=== PATIENT | male | born 1950 | race Caucasian/White ===

== ENCOUNTER 2018-03-16 05:59 | Inpatient (IN) ==
--- NOTE | 2018-03-02 08:46 | PAT Medication Instructions ---
Medication Instructions Date of Service March 02, 2018 Home Medications garlic 150 mg PO DAILY lansoprazole [Prevacid] 40 mg PO QAM lisinopril-hydrochlorothiazide 1 tab PO QAM lovastatin 20 mg PO HS naproxen sodium [Aleve] 220 mg PO UD PRN omega 7-qpg-kxi-fish oil [[place]-3] 1 dose PO DAILY tamsulosin [Flomax] 1 dose PO QAM ASK your surgeon for instructions naproxen sodium [Aleve] 220 mg PO UD PRN STOP taking 2 weeks before surgery (or as soon as possible if surgery is within 2 weeks) garlic 150 mg PO DAILY omega 4-bcw-jnu-fish oil [[place]-3] 1 dose PO DAILY DO NOT take the morning of surgery lisinopril-hydrochlorothiazide 1 tab PO QAM Take morning of surgery With a small sip of water, OTHERWISE NOTHING TO EAT OR DRINK AFTER MIDNIGHT: lansoprazole [Prevacid] 40 mg PO QAM tamsulosin [Flomax] 1 dose PO QAM Take evening before surgery lovastatin 20 mg PO HS Other Notes If you have any questions please call us at [phone] or [phone] or [phone] or [phone]
--- NOTE | 2018-03-02 13:16 | Anesthesiology Consultation ---
Date of Service March 02, 2018 Assessment & Plan (1) Encounter for pre-operative examination: Chart Review Chart Review: Acceptable Risk for Surgery and Patient seen in Pre Admission Testing Consults Requested medical (Dr. Opal Zeng (saw her PA-C on 02/22)) Patient was seen by PCP's office for medical pre-op examination. Note states, "There is no medical contraindication for the proposed surgery and anesthesia." Teaching & Discussion Pre-Anesthesia Teaching/Discussion Notes: Instructed NPO after midnight before surgery, except medications with 15 cc of water. Medication instructions provided according to the PAT guidelines. History Surgery Operation Date: 03/16/18 09:35 Proposed Procedures p Right Total Knee Arthroplasty - Marek Avelar MD Height/Weight Height: 6 ft Weight: 126 kg Allergies Allergy/AdvReac Type Severity Reaction Status Date / Time DUST Allergy Unknown Sneezing Uncoded 02/16/18 12:03 Medications Home Medications Medication Instructions Recorded Confirmed Last Taken garlic 150 mg PO DAILY 02/16/18 02/16/18 Unknown lansoprazole [Prevacid] 40 mg PO QAM 02/16/18 02/16/18 Unknown lisinopril-hydrochlorothiazide 1 tab PO QAM 02/16/18 02/16/18 Unknown lovastatin 20 mg PO HS 02/16/18 02/16/18 Unknown naproxen sodium [Aleve] 220 mg PO UD PRN 02/16/18 02/16/18 Unknown omega 7-yxl-izj-fish oil [[place]-3] 1 dose PO DAILY 02/16/18 02/16/18 Unknown tamsulosin [Flomax] 1 dose PO QAM 02/16/18 02/16/18 Unknown Past Medical History Medical History Acid reflux Arthritis Elevated glucose level Enlarged prostate History of endoscopy WITH DILATATION - 6 YRS AGO/NONE SINCE History of kidney stones Hyperlipidemia Hypertension Obesity Past Family History Family History Grandmother (Maternal) Family history of breast cancer Past Surgical History Surgical History History of colonoscopy History of laparoscopic cholecystectomy History of total left knee replacement Past Anesthesia History No Hx of Anesthesia Complications and No Family Hx of Anesthesia Complications History of PONV No Motion Sickness Screening History of Motion Sickness: Yes Social History Smoking Status: Never smoker Do You Dip or Chew Tobacco: No Hx Alcohol Use: No Hx Substance Use: No substance use type: does not use Exercise / Class Metabolic Activity II 4-5 Yardwork/Stairs/Walk up hill (Cuts wood, takes care of cattle, takes care of farm. Able to climb FOS. Denies CP or SOB. ) Review of Systems Patient denies chest pain, shortness of breath, dyspnea on exertion, cough, wheezing, palpitations. +joint pain (fingers, knee) +acid reflux (mostly controlled by medications) Physical Exam Vital Signs BP: 132/81 P: 88 R: 18 T: 98.2 SPO2: 96% on RA ENMT Mouth: + chipped teeth Thyromental Distance: > or= 3.5 Finger Breadths (3.5) Mallampati Class: II Neck normal visual inspection, trachea midline and + thick neck; neck extension not limited Respiratory normal respiratory effort Auscultation: lungs clear to auscultation bilaterally Cardiovascular Rate/Rhythm: regular rate and regular rhythm Heart Sounds: no murmur Vessels: no carotid bruit Neurologic moves all extremities Psychiatric Orientation: alert and oriented x 3 Testing Electrocardiogram Date: 03/02/18 Findings: + NSR @ (78) and + no change from (11/03/10) Chest X-Ray Date: 03/02/18 Findings: + NAD FINDINGS: Cardiac mediastinal and hilar silhouettes are within normal limits. No pneumothorax, pleural effusion, focal airspace consolidation or overt pulmonary edema. Mild right hemidiaphragmatic elevation. Degenerative changes of the shoulders and spine. Prior cholecystectomy. IMPRESSION: No acute process. Laboratory Results 03/02/18 14:20 03/02/18 14:20 Blood Type O Negative 03/02/18 14:20 Antibody Screen NEGATIVE 03/02/18 14:20 PT 10.2 Seconds (9.0-12.0) 03/02/18 14:20 INR 1.0 (0.9-1.1) 03/02/18 14:20 APTT 25.6 Seconds (21.0-31.0) 03/02/18 14:20 Hemoglobin A1c 6.2 % (4.5-5.6) H 03/02/18 14:20 Urine Color Yellow 03/02/18 Unknown Urine Appearance Clear (Clear) 03/02/18 Unknown Urine pH 5.5 (4.5-7.5) 03/02/18 Unknown Ur Specific [place] 1.020 (1.000-1.030) 03/02/18 Unknown Urine Protein Negative (Negative) 03/02/18 Unknown Urine Glucose (UA) Negative (Negative) 03/02/18 Unknown Urine Ketones Negative (Negative) 03/02/18 Unknown Urine Nitrite Negative (Negative) 03/02/18 Unknown Ur Leukocyte Esterase Negative (Negative) 03/02/18 Unknown
--- NOTE | 2018-03-02 14:46 | XRay Report ---
XR chest Pre-admission PA/Lat HISTORY: 67 years-old Male pat preoperative exam. No acute chest complaints COMPARISON: Chest radiograph 11/03/2010 TECHNIQUE: PA and lateral views of the chest FINDINGS: Cardiac mediastinal and hilar silhouettes are within normal limits. No pneumothorax, pleural effusion , focal airspace consolidation or overt pulmonary edema. Mild right hemidiaphragmatic elevation. Dege nerative changes of the shoulders and spine. Prior cholecystectomy. IMPRESSION: No acute process. The above report was generated using voice recognition software. It may contain grammatical, syntax o r spelling errors. Electronically signed by: Morgan Craft M.D. 03/02/2018 2:45 PM
[2018-03-02 15:37] LABS: Basophils # (auto) 0.04 K/uL (0-0.2); Basophils % (auto) 0.5 %; Eosinophils % (auto) 2.6 %; Hematocrit (blood only) 44.2 % (42-52); Hemoglobin 15.6 g/dL (14.0-18.0); Immature Granulocytes # (auto) 0.03 K/uL (0.00-0.02); Immature Granulocytes % (auto) 0.4 %; Lymphocytes # (auto) 1.85 K/uL (1.2-3.4); Mean Corpuscular Hgb Conc 35.3 g/dL (32-36); Mean Corpuscular Volume 88.6 fL (80-100); Mean Platelet Volume 9.7 fL (7.4-10.4); Monocytes # (auto) 0.54 K/uL (0.11-0.59); Neutrophils # (auto) 5.06 K/uL (1.4-6.5); Neutrophils % (auto) 65.5 %; Platelet Count 163 K/uL (130-400); RDW Coefficient of Variation 14.4 % (11.5-14.5); RDW Standard Deviation 46.6 fL (36.4-46.3); Red Blood Count 4.99 M/uL (4.7-6.1); White Blood Count 7.72 K/uL (4.8-10.8)
[2018-03-02 15:42] LABS: Appearance Urine Clear (Clear); Bilirubin Urine Negative (Negative); Color Urine Yellow; Glucose Urine UA Negative (Negative); Ketones Urine Negative (Negative); Leukocyte Esterase Urine Negative (Negative); Nitrite Urine Negative (Negative); Protein Urine Negative (Negative); Urobilinogen Urine Negative (Negative); pH Urine 5.5 (4.5-7.5)
[2018-03-02 15:46] LABS: Albumin Level 4.1 gm/dl (3.4-5.0); BUN Creatinine Ratio 14.1 (10-20); Calcium 8.9 mg/dl (8.5-10.1); Creatinine Clr Calc Pharmacy 81.5 ml/min; Est GFR (African American) 72.3; Est GFR (Non-African American) 62.4; Potassium 3.6 mmol/L (3.5-5.1)
[2018-03-02 15:49] LABS: Partial Thromboplastin Time 25.6 Seconds (21.0-31.0); Prothrombin Time 10.2 Seconds (9.0-12.0)
[2018-03-03 05:53] LABS: Estimated Average Glucose 131 mg/dl
--- NOTE | 2018-03-15 13:45 | History and Physical Report ---
DATE OF ADMISSION: 03/16/2018 CHIEF COMPLAINT: Right knee pain. HISTORY OF PRESENT ILLNESS: The patient is a 67-year-old male with known osteoarthritis about his right knee. He had a previous left total knee arthroplasty by another physician in 2013. He has had a previous corticosteroid injection in this right knee. He takes Aleve daily as well as glucosamine and chondroitin. He continues to have pain and disability and now desires to proceed with right total knee arthroplasty. PAST MEDICAL HISTORY: Hypertension, hyperlipidemia, GERD, osteoarthritis. PAST SURGICAL HISTORY: Left total knee as above, cholecystectomy. MEDICATIONS: Crestor 5 mg daily, Prilosec 40 mg daily, Flomax 0.4 mg daily, lisinopril/HCTZ 20/25 daily, Aleve daily, glucosamine daily, omega-3 fish oil daily, garlic daily. ALLERGIES: No known drug allergies. SOCIAL HISTORY AND REVIEW OF SYSTEMS: Noncontributory. PHYSICAL EXAMINATION: GENERAL: Well-nourished, well-developed elderly male who appears stated age. HEENT: Normocephalic, atraumatic, extraocular movements intact, oropharynx pink and moist. NECK: Supple without adenopathy. LUNGS: Clear to auscultation bilaterally. HEART: Regular rate and rhythm. ABDOMEN: Soft, nontender, nondistended. EXTREMITIES: The upper extremities are within normal limits. The right knee has a varus alignment. His range of motion is approximately 0-125 degrees. He has mild crepitus with range of motion. X-RAYS: X-rays were reviewed. He has a slight varus aligned knee. He has bone on bone arthritis of the medial compartment with complete loss of joint space. There are medial, lateral and patellofemoral joint line osteophytes. ASSESSMENT: Right knee degenerative joint disease. PLAN: Risks versus benefits were discussed, consent was obtained. The patient's primary care physician is Dr. Opal Zeng from [place]. We will proceed with right total knee arthroplasty as indicated.
[2018-03-16] MEDS ORDERED: FAMOTIDINE 20 MG TAB PO SCH (06:00)
[2018-03-16] MEDS ORDERED: OXYCODONE HCL 10 MG TABCR (OXYCONTIN) PO SCH (06:00)
[2018-03-16] MEDS ORDERED: LR 15ML/HR IV SCH (06:00)
[2018-03-16] MEDS ORDERED: CEFAZOLIN 3000MG 65 ML IV SCH (06:00)
[2018-03-16] MEDS ORDERED: GABAPENTIN 300 MG PO SCH (06:00)
[2018-03-16] MEDS ORDERED: CeleBREX 200 MG CAP PO SCH (06:00)
[2018-03-16] MEDS ORDERED: ACETAMINOPHEN 500 MG TAB PO SCH (06:00)
[2018-03-16] MEDS ORDERED: ROPIVACAINE 0.5% HCL/PF 150 MG, BUPIVACAINE 0.5% MPF 30 ML, EPINEPHrine 30MG/30ML (OR U... INFIL SCH (06:00)
[2018-03-16] MEDS ORDERED: TRANEXAMIC ACID 1,000 MG **IV Pre-op IV SCH (06:00)
[2018-03-16] MEDS ORDERED: dexAMETHasone 4 MG TAB PO SCH (06:00)
[2018-03-16] MEDS ORDERED: METOCLOPRAMIDE HCL 10 MG TABLET PO SCH (06:00)
[2018-03-16] MEDS ORDERED: TRANEXAMIC ACID 1,000 MG **IV Intra-op IV SCH (06:30)
[2018-03-16] MEDS ORDERED: MIDAZOLAM HCL 1 MG/ML 2ML VIAL ONE (06:38)
[2018-03-16] MEDS ORDERED: KETAMINE HCL INJ 50 MG/ML 10 ML VIAL ONE (06:38)
[2018-03-16] MEDS: LR 500ML BOLUS, THEN 15ML/HR IV SCH ×4 (06:50→12:05)
[2018-03-16] MEDS ORDERED: POVIDONE-IODINE OP SOLN 30 ML BTL ONE (07:02)
[2018-03-16] MEDS ORDERED: ORTHO JOINT ANESTHETIC ONE (07:03)
[2018-03-16] MEDS ORDERED: BACITRACIN INJ 50,000 UNIT VIAL ONE (07:03)
[2018-03-16] MEDS ORDERED: ROPIVACAINE 0.5% 5 MG/ML 30 ML VIAL ONE (07:20)
--- NOTE | 2018-03-16 07:20 | History & Physical Bridge Note ---
Date of Service March 16, 2018 History & Physical Bridge Note I have examined the patient, reviewed the History & Physical and in the interval since the performance of the History & Physical I have noted the following changes of clinical significance: no changes noted
[2018-03-16] MEDS ORDERED: BUPIVACAINE 0.5 % 5 MG/1 ML PF 10ML VIAL ONE (07:21)
[2018-03-16] MEDS ORDERED: DEXAMETHASONE SOD INJ 4 MG/ML VIAL ONE (08:46)
[2018-03-16] MEDS ORDERED: ONDANSETRON INJ 2 MG/ML 2 ML VIAL ONE (08:46)
[2018-03-16] MEDS ORDERED: GLYCOPYRROLATE 0.2 MG/ML VIAL ONE (08:46)
[2018-03-16] MEDS ORDERED: LIDOCAINE HCL 2% 2 ML VIAL/AMP(20MG/ML) INFIL ONE (08:46)
[2018-03-16] MEDS ORDERED: PROPOFOL IV EMULSION 10 MG/ML 20 ML VIAL IV ONE ×2 (08:46→09:04)
--- NOTE | 2018-03-16 09:35 | Operative Report ---
Post Operative Report Pre & Post Diagnosis Operation Date: 03/16/18 08:20 Pre-Op Diagnosis: Right knee degenerative joint disease. Post-Op Diagnosis: Right knee degenerative joint disease. Procedure Operation Date: 03/16/18 08:20 Actual Procedures p Right Total Knee Arthroplasty, [place], Cemented(Right) - Marek Avelar MD Surgeon Marek Avelar MD [employer] Instructor Vanessa Estimated Blood Loss 10 Findings Consistent with Post-Op Diagnosis Specimens Bone fragments Complications none Disposition Accompanied Patient To Recovery: No Disposition: Recovery Room Indications Knee pain Description of Procedure Patient's right leg was prepped and draped in usual sterile manner. Limb was exsanguinated with an Esmarch bandage longitudinal incision was made and a medium parapatellar incision was made patella was everted and the knee was flexed flexed. Fat pad was removed and attention was turned to the proximal tibia where the medial face tibia was cleared of soft tissue using a Bovie and a Guo proximal tibia was osteotomized at the appropriate level using the oscillating saw. Next a drill was used to gain access to the femoral canal. The flexible guide was placed in the distal femoral cut was made. A size 6 femur was noted 1.5 mm anterior shift was performed and the chamfer cuts for the 6 were made. The notch cut was then made in the remnants of the the trial femur was impacted in position and fit well the drill for the pegs was utilized and then attention was turned to the proximal tibia. Size 6 tibial component which was used in appropriate rotation and pinned in position. Stem was prepared using a punch and a a drill and trial reduction was carried out and a size 39 patella was chosen. A lateral release was required for proper tracking and all trial components removed. Periarticular injection was carried out pulsatile irrigation was used to thoroughly irrigate the knee bone ends were dried cement was mixed and the final components were cemented into position. Excess cement was removed final irrigation was carried out a Betadine soap was utilized fascia was closed using #1 Mersilene subcutaneous tissue was closed using 0 Dexon skin was closed with is applied. Sterile dressing of Adaptic 4 x 4's sterile umbilicus applied. Patient tolerated procedure well. Mr. Guo was utilized to a portion of the case including positioning prepping draping surgical assistance wound closure and dressing application I attest to the content of the Intraoperative Record and any orders documented therein. Any exceptions are noted below.
[2018-03-16] MEDS ORDERED: ePHEDrine sulfate 50 MG/ML AMP IV PRN (10:22)
[2018-03-16] MEDS ORDERED: ATROPINE SULFATE 0.1 MG/ML 10ML SYR IV PRN (10:22)
[2018-03-16] MEDS ORDERED: ONDANSETRON INJ 2 MG/ML 2 ML VIAL IV PRN ×2 (10:22→11:48)
[2018-03-16] MEDS ORDERED: HYDROmorphone INJ 2 MG/ML SYR/VIAL IV PRN (10:22)
[2018-03-16] MEDS ORDERED: HYDROmorphone INJ 0.5 MG/0.5 ML SYR ONE (10:24)
--- NOTE | 2018-03-16 10:31 | XRay Report ---
XR knee RT 2V routine CLINICAL HISTORY: post-op TKA COMPARISON: None. DISCUSSION: Anatomic alignment post total right knee arthroplasty. Good contact between prosthetic an d underlying bone. Expected postoperative soft tissue change. IMPRESSION: Anatomic alignment post total right knee arthroplasty The above report was generated using voice recognition software. It may contain grammatical, syntax or spelling errors. Electronically signed by: Neto Huerta M.D. 03/16/2018 10:29 AM
--- NOTE | 2018-03-16 11:04 | Anesthesiology Progress Note ---
Date of Service March 16, 2018 Anesthesia Post Procedure Vital Signs Vital Signs: Temp Pulse Pulse Resp BP Pulse Ox 03/16/18 10:55 63 16 119/68 96 03/16/18 10:45 70 16 112/68 93 03/16/18 10:35 36.6 C 67 16 112/64 96 03/16/18 10:25 70 16 118/73 95 03/16/18 10:15 86 16 121/79 93 03/16/18 10:05 36.9 C 88 15 104/66 95 03/16/18 06:51 36.5 C 85 20 143/87 H 96 Pain Intensity Right Knee: Pain Intensity: 5 Notes Mental Status: alert / awake / arousable Patient Amnestic to Procedure: Yes Nausea / Vomiting: adequately controlled Pain: adequately controlled Airway Patency, RR, SpO2: stable & adequate BP & HR: stable & adequate Hydration State: stable & adequate Anesthetic Complications: no major complications apparent and Pt Satisfied with anesthetic care
[2018-03-16] MEDS ORDERED: SODIUM CHLORIDE 0.9% 1000ML 1,000 ML IV SCH (11:48)
[2018-03-16] MEDS ORDERED: MAGNESIUM HYDROXIDE SUSP 30 ML UDC PO PRN (11:48)
[2018-03-16] MEDS ORDERED: BISACODYL 10 MG SUPP PR PRN (11:48)
[2018-03-16] MEDS ORDERED: NALOXONE HCL 0.4 MG/1 ML VIAL/CARP IV PRN (11:48)
[2018-03-16] MEDS ORDERED: HYDROmorphone INJ 1 MG/ML SYRINGE IV PRN (11:48)
[2018-03-16] MEDS ORDERED: METOCLOPRAMIDE HCL INJ 5 MG/ML 2 ML VIAL IV PRN (11:48)
[2018-03-16] MEDS ORDERED: ALUMINUM/MAGNESIUM SUSP 30 ML UDC PO PRN (11:48)
[2018-03-16] MEDS: KETOROLAC TROMETHAMINE 15 MG/ML VIAL IV SCH ×2 (13:18→19:28)
[2018-03-16] MEDS: HYDROCODONE/ACETAMOPHEN 5/325MG TAB PO PRN (15:54)
[2018-03-16] MEDS: CEFAZOLIN 2000MG 2,000 MG/15 ML SYR IV SCH ×2 (15:56→23:46)
[2018-03-16] MEDS: FERROUS GLUCONATE 324 MG TAB PO SCH (17:09)
[2018-03-16] MEDS: DOCUSATE SODIUM 100 MG CAP PO SCH (20:34)
[2018-03-16] MEDS: ASPIRIN 81 MG ECTAB PO SCH (20:35)
[2018-03-16] MEDS: LOVASTATIN 20 MG TAB PO SCH (20:35)
[2018-03-16] MEDS: SENNA 8.6 MG TAB PO SCH (20:36)
[2018-03-17] MEDS: KETOROLAC TROMETHAMINE 15 MG/ML VIAL IV SCH ×2 (02:04→08:44)
[2018-03-17 06:17] LABS: Hematocrit (blood only) 33.4 % (42-52); Hemoglobin 11.7 g/dL (14.0-18.0); Mean Corpuscular Volume 88.6 fL (80-100); Mean Platelet Volume 9.1 fL (7.4-10.4); Platelet Count 133 K/uL (130-400); RDW Coefficient of Variation 14.2 % (11.5-14.5); RDW Standard Deviation 46.2 fL (36.4-46.3); Red Blood Count 3.77 M/uL (4.7-6.1); White Blood Count 11.54 K/uL (4.8-10.8)
[2018-03-17 06:53] LABS: BUN Creatinine Ratio 21.6 (10-20); Calcium 8.2 mg/dl (8.5-10.1); Creatinine Clr Calc Pharmacy 80.9 ml/min; Est GFR (African American) 73.1; Potassium 3.5 mmol/L (3.5-5.1)
[2018-03-17] MEDS ORDERED: dexAMETHasone 10 MG in SYRINGE 0 ML IV SCH (08:00)
[2018-03-17] MEDS: FERROUS GLUCONATE 324 MG TAB PO SCH ×2 (08:44→18:09)
[2018-03-17] MEDS: ASPIRIN 81 MG ECTAB PO SCH ×2 (08:44→20:04)
[2018-03-17] MEDS: LISINOPRIL/HCTZ 20/25MG 1 TAB PO SCH (08:44)
[2018-03-17] MEDS: DOCUSATE SODIUM 100 MG CAP PO SCH ×2 (08:44→20:05)
[2018-03-17] MEDS: MULTIVITAMIN TAB PO SCH (08:44)
[2018-03-17] MEDS: TAMSULOSIN HCL 0.4 MG CAP PO SCH (08:44)
--- NOTE | 2018-03-17 09:57 | Orthopedic Progress Note ---
Date of Service March 17, 2018 Assessment & Plan (1) Status post total right knee replacement using cement: Begin PT and OT protocols. DVT prophylaxis with aspirin twice daily, SCDs, ONI caceres. Pain control with [place], hydromorphone. Plan for home health services upon discharge. Plan for early dressing change today removal of Hemovac. Subjective Postop day 1 status post right total knee arthroplasty. Patient is sitting up in a chair at the bedside eating his breakfast. He is having some mild pain over the patellar area but otherwise has no complaints. He appears comfortable. He denies shortness of breath, chest pain, lightheadedness. He denies calf tenderness. Physical Exam 2 Vital Signs (Past 24 Hours): Last Vital Signs Temp 36.7 C 03/17/18 07:00 Pulse 86 03/17/18 07:00 Resp 17 03/17/18 07:00 BP 123/76 03/17/18 07:00 Pulse Ox 96 03/17/18 07:00 Physical Exam: Patient had some drainage through his original dressings. His original dressing was reinforced. Hemovac is still functioning. Latest drainage was 100 cc. Calves are soft and nontender. Neurovascular is intact. Toes are mobile. Results & Data Laboratory Results 03/17/18 03/17/18 03/16/18 Range/Units 06:06 06:06 06:20 WBC 11.54 H (4.8-10.8) K/uL RBC 3.77 L (4.7-6.1) M/uL Hgb 11.7 L (14.0-18.0) g/dL Hct 33.4 L (42-52) % MCV 88.6 (80-100) fL MCH 31.0 (25-34) pg MCHC 35.0 (32-36) g/dL RDW Std Deviation 46.2 (36.4-46.3) fL RDW Coeff of Pat 14.2 (11.5-14.5) % Plt Count 133 (130-400) K/uL MPV 9.1 (7.4-10.4) fL Sodium 136 (136-145) mmol/L Potassium 3.5 (3.5-5.1) mmol/L Chloride 104 (98-107) mmol/L Carbon Dioxide 27 (21-32) mmol/L Anion Gap 5.0 (3-11) BUN 25 H (7-18) mg/dl Creatinine 1.18 (0.6-1.4) mg/dl Est Cr Clr Drug Dosing 80.9 ml/min Est GFR ( Amer) 73.1 Est GFR (Non-Af Amer) 63.0 BUN/Creatinine Ratio 21.6 H (10-20) Glucose 146 H (70-99) mg/dl Calcium 8.2 L (8.5-10.1) mg/dl Hepatitis C Ab Screen Neg (Neg)
[2018-03-17] MEDS: PANTOprazole 40 MG TAB PO SCH (11:11)
--- NOTE | 2018-03-17 17:35 | Anesthesiology Progress Note ---
Date of Service March 17, 2018 Anesthesia Post Procedure Vital Signs Vital Signs: Temp Pulse Pulse Resp BP Pulse Ox 03/17/18 15:03 36.6 C 74 20 113/68 95 03/17/18 13:10 98 03/17/18 12:00 36.6 C 80 16 102/63 94 03/17/18 07:00 36.7 C 86 17 123/76 96 03/17/18 02:04 36.4 C L 82 16 115/69 96 03/16/18 22:59 36.6 C 71 14 106/66 96 03/16/18 20:00 36.8 C 67 22 123/74 96 03/16/18 19:08 36.7 C 73 16 107/66 96 Pain Intensity Right Knee: Pain Intensity: 4 Notes Mental Status: alert / awake / arousable and participated in evaluation Patient Amnestic to Procedure: Yes Nausea / Vomiting: adequately controlled Pain: adequately controlled Airway Patency, RR, SpO2: stable & adequate BP & HR: stable & adequate Hydration State: stable & adequate Neuraxial Anesthesia: was administered and sensory block resolved Anesthetic Complications: no major complications apparent and Pt Satisfied with anesthetic care
[2018-03-17] MEDS: HYDROCODONE/ACETAMOPHEN 5/325MG TAB PO PRN (20:03)
[2018-03-17] MEDS: LOVASTATIN 20 MG TAB PO SCH (20:04)
[2018-03-17] MEDS: SENNA 8.6 MG TAB PO SCH (20:04)
[2018-03-18] MEDS: HYDROCODONE/ACETAMOPHEN 5/325MG TAB PO PRN ×2 (06:05→10:49)
--- NOTE | 2018-03-18 06:12 | Orthopedic Progress Note ---
Date of Service March 18, 2018 Assessment & Plan (1) Status post total right knee replacement using cement: POD #2 s/p Right TKA pt/ot dvt proph with [place]/scd/asa Pain control with [place], hydromorphone. Plan for home health services upon discharge. Subjective Postop day 2 status post right total knee arthroplasty. denies cp/sob denies fever/chills denies nausea/vomiting Physical Exam 2 Vital Signs (Past 24 Hours): Last Vital Signs Temp 36.7 C 03/18/18 05:58 Pulse 73 03/18/18 05:58 Resp 17 03/18/18 05:58 BP 117/72 03/18/18 05:58 Pulse Ox 99 03/18/18 05:58 Constitutional: WD/WN, vitals as above no acute distress Musculoskeletal: Right knee: lower extremity is NVDI, calf SNT, negative nuris sign. Silver[place] dressing is CD&I, DP palpable, able to wiggle toes/ankle movement without difficulty. expected post-operative bruising noted.
[2018-03-18] MEDS: LISINOPRIL/HCTZ 20/25MG 1 TAB PO SCH (07:22)
[2018-03-18] MEDS: PANTOprazole 40 MG TAB PO SCH (07:22)
[2018-03-18] MEDS: FERROUS GLUCONATE 324 MG TAB PO SCH (07:22)
[2018-03-18] MEDS: DOCUSATE SODIUM 100 MG CAP PO SCH (07:22)
[2018-03-18] MEDS: MULTIVITAMIN TAB PO SCH (07:22)
[2018-03-18] MEDS: TAMSULOSIN HCL 0.4 MG CAP PO SCH (07:22)
[2018-03-18] MEDS: ASPIRIN 81 MG ECTAB PO SCH (07:22)
--- NOTE | 2018-03-29 12:52 | Discharge Summary ---
CHIEF COMPLAINT: Right knee pain. Please see complete history and physical examination. HOSPITAL COURSE: The patient underwent right total knee arthroplasty without complication. He tolerated the procedure well and was discharged to recovery room in stable condition. His postoperative pain was reasonably well controlled with a combination of spinal anesthesia, adductor canal block, intraoperative joint injection, IV, and oral pain medications. He was started on aspirin for DVT prophylaxis. He also utilized ONI stockings and SCDs for additional prophylaxis. His H and H was stable and did not require transfusion. His surgical drain was discontinued by postop day 2. His surgical dressing was changed prior to discharge and will remain in place for approximately 7 days postoperative. He tolerated postop physical therapy reasonably well as he was ambulating and transferring appropriately. He was bending his knee appropriately. He was discharged home on postop day 2. He will continue his physical therapy at home. He will continue the aspirin for DVT prophylaxis and follow up in our office in approximately 10-14 days for his initial postop evaluation.
== END 2018-03-18 11:15 | disposition home health service (06) | DRG 470 ==
LOC: ASU 05:59 → 3E 10:10